=== PATIENT | female | born 1960 | race Caucasian/White ===

== ENCOUNTER 2018-04-21 16:44 | Emergency (ER) | payer BC, OTHER ==
[~2018-04-21 16:44] MED LIST: ISOVUE-370 76%-LOCM 1 ML ONE
[2018-04-21 17:29] LABS: #Basophils 0.1 thou/uL (0.0-0.2); #Eosinphils 0.1 thou/uL (0.0-0.7); #Lymphocytes 1.4 thou/uL (1.20-3.40); #Monocytes 0.3 thou/uL (0.11-0.59); #Neutrophils 6.5 thou/uL (1.40-6.50); %Basophils 0.7 % (0.0-1.0); %Eosinophils 1.2 % (0.0-10.0); %Lymphocytes 16.7 % (21.0-51.0); %Monocytes 3.5 % (0.0-10.0); %Neutrophils 77.9 % (42.0-75.0); Hemoglobin 15.3 g/dL (12.0-16.0); Mean Corpuscular Volume 93.8 fL (78.0-98.0); Platelet Count 366 thou/uL (130-400); RBC Distribution Width 11.2 % (11.5-14.5); Red Blood Cell (RBC) Count 4.95 mill/uL (4.20-5.40); White Blood Cell (WBC) Count 8.3 thou/uL (4.8-10.8)
--- NOTE | 2018-04-21 17:34 | RAD ---
CHEST 2 VIEWS: Date: 04/21/18 HISTORY: Chest pain. COMPARISON: None. FINDINGS: Lungs are clear. No pneumothorax or effusion. Cardiac silhouette and mediastinal contours within norm al limits. IMPRESSION: No acute intrathoracic abnormality. POS: [facility]
[2018-04-21 17:56] LABS: CKMB 1.8 ng/mL (0-6.6); Troponin I Less than 0.010 ng/mL (< 0.028)
[2018-04-21] MEDS ORDERED: Ondansetron PF 4 MG/2 ML Vial ONE ×2 (18:39→21:16)
--- NOTE | 2018-04-21 20:12 | ULT ---
ULTRASOUND RIGHT UPPER QUADRANT: 04/21/18 HISTORY: Epigastric pain with nausea. COMPARISON: Ultrasound 2010. FINDINGS: The exam is limited by artifact which likely is interference in nature. The liver measures 13.7 cm in length. Gallbladder is normal. Gallbladder wall thickness is normal. Common bile duct is normal. Pancreas is not seen. Right kidney measures 11.7 x 5 x 4.7 cm. IMPRESSION: Limited examination likely due to interference or a probe malfunction. No acute abnormality is apprec iated. POS: [facility]
--- NOTE | 2018-04-21 20:26 | CT ---
CT ABDOMEN AND PELVIS WITH CONTRAST: 04/21/18 HISTORY: Epigastric abdominal pain. COMPARISON: None. FINDINGS: Lung bases are clear. No pericardial effusion. There is mild hyperenhancement of the mucosal of the first portion duodenum. The aortoiliac contour i s nonaneurysmal. Spleen, liver, gallbladder are all unremarkable. The adrenal glands are normal. No hydronephrosis. Cysts of the liver. Spleen is normal as well as the pancreas. No dilated loops of large or small bowel. There is a hypodensity interpolar left kidney too small to fully characterize although statistically likely a cyst. 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 IMPRESSION: Mild hyperenhancement of the mucosa of the first portion of the duodenum can be seen with duodenitis. This may be the source of the patient's pain. Nonemergent upper endoscopy may be beneficial. POS: [facility]
== END 2018-04-21 22:17 | disposition home or self-care (01) ==
LOC: ERS 16:44
DX: K29.80 Duodenitis without bleeding (principal); F41.9 Anxiety disorder, unspecified
CPT/HCPCS: 71046; 74177; 76705; 82550; 82553; 83690; 84484; 85025; 93005; 96374; 96376; J2405